=== PATIENT | male | born 1950 | race Caucasian/White ===

== ENCOUNTER → 2016-07-26 | Outpatient (CLI) | payer OTHER ==
--- NOTE | 2016-07-26 17:41 | US ---
Bilateral Lower Extremity Ultrasound and Venous Duplex Doppler Study History: Edema, left greater than right, with left calf pain, history of prostate cancer. Comparison: None available. Technique: High frequency transducer was used for imaging and Doppler study of the veins of the righ t and left lower extremities. Pulsed Doppler and color Doppler were utilized, along with various ma neuvers to assess flow in the veins. Findings: Right: The deep veins of the right lower extremity are normally compressible between the groin and th e upper calf. They have normal Doppler waveforms within them. Visualization of the peroneal veins is limited. No venous thrombosis is identified. Left: The deep veins of the left lower extremity are normally compressible between the groin and the upper calf. They have normal Doppler waveforms within them. Visualization of the peroneal veins is li mited. No venous thrombus is identified. Impression: No evidence of deep vein thrombosis in the lower extremities. Message left with Donato Lucero today at 1736 hours.
== END ==
LOC: FIMAGING 16:47
PROVIDERS: ATTEND Internal Medicine Hematology & Oncology
DX: M79.89 Other specified soft tissue disorders (principal); Z85.46 Personal history of malignant neoplasm of prostate